=== PATIENT | female | born 1940 | race Caucasian/White ===

== ENCOUNTER 2017-09-02 12:41 | Inpatient (IN) | payer OTHER ==
[~2017-09-02] VITALS: Ht 165.1 cm; Wt 106.6 kg
[~2017-09-02 12:41] MED LIST: AVENTYL HCL25 MG; BUDESONIDE0.5 MG/2 M; EVISTA60 MG PO; FLOVENT DI50 MCG/DIS; GABAPENTIN800 MG; HUMULIN 70/30 PE3 ML SQ; LANTUS100 U/ML SQ; MONTELUKAST SODI1 GM; NEURONTIN800 MG; PNEU16DI2; PREDNISONE10 MG; RALOXIFENE HCL60 MG; RAYOS5 MG; TIROSINT75 MCG; VASOFLEX TABLET1 TAB
== END 2017-09-08 09:53 | disposition expired | DRG 190 ==
LOC: ER 12:41 → MEDI 19:51 → SEC-K 19:51 → MEDJ 09-03 16:30
PROC: 4A033R1 Measurement of Arterial Saturation, Peripheral, Percutaneous Approach (ICD-10-PCS; 2017-09-02)
PROC: 3E0F7GC Introduction of Other Therapeutic Substance into Respiratory Tract, Via Natural or Artificial Opening (ICD-10-PCS; 2017-09-02)
PROC: 5A09457 Assistance with Respiratory Ventilation, 24-96 Consecutive Hours, Continuous Positive Airway Pressure (ICD-10-PCS; principal; 2017-09-06)
PROC: 4A12X4Z Monitoring of Cardiac Electrical Activity, External Approach (ICD-10-PCS; 2017-09-06)
DX: J44.1 Chronic obstructive pulmonary disease with (acute) exacerbation (principal); J96.22 Acute and chronic respiratory failure with hypercapnia; E87.2 Acidosis; B37.0 Candidal stomatitis; J84.112 Idiopathic pulmonary fibrosis; Z79.4 Long term (current) use of insulin; E11.9 Type 2 diabetes mellitus without complications; J11.1 Influenza due to unidentified influenza virus with other respiratory manifestations; E03.8 Other specified hypothyroidism; M06.89 Other specified rheumatoid arthritis, multiple sites; Z66 Do not resuscitate; Z78.1 Physical restraint status